=== PATIENT | female | born 1970 | race Caucasian/White ===

== ENCOUNTER 2017-05-13 17:52 | Emergency (ER) | payer BC ==
[~2017-05-13] VITALS: Ht 162.6 cm; Wt 90.7 kg
[2017-05-13] MEDS ORDERED: FOLTX TABLET1 EAC1 PO (21:47)
[2017-05-13] MEDS ORDERED: VITAMIN D2000 UNI1 PO (21:48)
[2017-05-13] MEDS ORDERED: ASPIRIN325 MG PO (21:49)
[2017-05-13] MEDS ORDERED: VITAMIN D1000 UNI1 PO (21:49)
[2017-05-13] MEDS ORDERED: PRILOSEC OTC20 MG PO (21:50)
[2017-05-13] MEDS ORDERED: MOBIC15 MG PO (21:51)
[2017-05-13] MEDS ORDERED: LIDODERM1 EACH TOP (23:23)
[2017-05-13] MEDS ORDERED: ONDANSETRON ODT4 MG SL (23:23)
[2017-05-13] MEDS ORDERED: NAPROSYN500 MG PO (23:23)
[2017-10-21] MEDS ORDERED: LEVAQUIN500 MG PO (18:45)
[2017-10-21] MEDS ORDERED: NORCO 10-325 T1 EACH PO (18:45)
[2017-10-21] MEDS ORDERED: ONDANSETRON ODT8 MG PO (18:45)
== END 2017-05-13 23:42 | disposition home or self-care (01) ==
LOC: ED 17:52
DX: N20.1 Calculus of ureter (principal); F17.200 Nicotine dependence, unspecified, uncomplicated
CPT/HCPCS: 80053; 81001; 85025; 96374; 96375; 99283; J1170; J1885; J2405

== ENCOUNTER 2017-11-17 10:32 | Emergency (ER) | payer BC ==
[~2017-11-17] VITALS: Ht 162.6 cm; Wt 90.7 kg
[~2017-11-17 10:32] MED LIST: ASPIRIN325 MG PO; FOLTX TABLET1 EAC1 PO; LEVAQUIN500 MG PO; LIDODERM1 EACH TOP; MOBIC15 MG PO; NAPROSYN500 MG PO; NORCO 10-325 T1 EACH PO; ONDANSETRON ODT4 MG SL; ONDANSETRON ODT8 MG PO; PRILOSEC OTC20 MG PO; VITAMIN D1000 UNI1 PO; VITAMIN D2000 UNI1 PO
[2017-11-17] MEDS ORDERED: FLOMAX0.4 MG PO (10:55)
[2017-11-17] MEDS ORDERED: CIPRO500 MG PO (10:55)
[2017-11-17] MEDS ORDERED: NORCO 10-325 T1 EACH PO (13:43)
[2017-11-17] MEDS ORDERED: COLACE100 MG PO (13:43)
== END 2017-11-17 13:54 | disposition home or self-care (01) ==
LOC: ED 10:32
DX: N20.0 Calculus of kidney (principal); F17.200 Nicotine dependence, unspecified, uncomplicated; Z91.041 Radiographic dye allergy status; Z79.899 Other long term (current) drug therapy; Z79.82 Long term (current) use of aspirin; Z79.2 Long term (current) use of antibiotics
CPT/HCPCS: 76775; 80053; 85025; 96361; 96374; 96375; 99284; J1885; J2405; J3010; J7030